=== PATIENT | female | born 1950 | race Caucasian/White ===

== ENCOUNTER 2024-07-06 21:15 | Emergency (ER) | payer MEDICARE ==
[~2024-07-06] VITALS: Ht 165.1 cm; Wt 61.0 kg
[2024-07-06 21:26] VITALS: BP 175/72; PULSE 77; RESP 18; TEMP 36.7; O2SAT 99
== END 2024-07-07 00:57 | disposition left against medical advice (07) ==
LOC: ER 21:15
DX: R06.02 Shortness of breath (principal); I10 Essential (primary) hypertension; Z53.21 Procedure and treatment not carried out due to patient leaving prior to being seen by health care provider
CPT/HCPCS: 71045; 93005